=== PATIENT | female | born 1995 | race Caucasian/White ===

== ENCOUNTER 2022-01-09 05:35 | Emergency (ER) | payer OTHER ==
[2022-01-09 05:54] VITALS: BP 119/79; PULSE 100; TEMP 99.5; BMI 25.4
[2022-01-09] MEDS ORDERED: ACETAMINOPHEN 500 MG TABLET (FP) PO ONE (06:34)
[2022-01-09] MEDS ORDERED: ACETAMINOPHEN 500 MG TABLET (FP) ONE (06:48)
== END 2022-01-09 06:50 | disposition home or self-care (01) ==
LOC: FER 05:35
DX: Z20.822 Contact with and (suspected) exposure to COVID-19 (principal)
CPT/HCPCS: 99283-25